=== PATIENT | female | born 1970 | race Caucasian/White ===

== ENCOUNTER → 2019-08-06 | Outpatient (CLI) | payer BC | END | disposition home or self-care (01) | LOC: LAB SHORT 12:02 → LAB EV 12:02 | DX: R05 Cough (principal) | CPT/HCPCS: U0002 ==

== ENCOUNTER 2021-11-10 09:19 | Emergency (ER) | payer BC ==
[~2021-11-10] VITALS: Ht 165.1 cm; Wt 82.5 kg
[~2021-11-10 09:19] MED LIST: AMBIEN5 MG PO; DILT180 PO; DILT60 PO; FLONASE ALLERG9.9 M2; LAMICTAL25 MG PO; LAMO100; [UNRECOGNIZED DRUG - OTHER]
[2021-11-10] MEDS ORDERED: Mupirocin22 GM TOP (09:53)
== END 2021-11-10 09:56 | disposition home or self-care (01) ==
LOC: ER 09:19
DX: R53.83 Other fatigue (principal); R41.0 Disorientation, unspecified; T36.8X5A Adverse effect of other systemic antibiotics, initial encounter; L73.9 Follicular disorder, unspecified; Z88.6 Allergy status to analgesic agent; Z88.1 Allergy status to other antibiotic agents; Z88.0 Allergy status to penicillin; Z88.8 Allergy status to other drugs, medicaments and biological substances; Z79.899 Other long term (current) drug therapy; Y92.9 Unspecified place or not applicable
CPT/HCPCS: 99282

== ENCOUNTER 2021-11-13 17:16 | Emergency (ER) | payer BC ==
[~2021-11-13] VITALS: Ht 165.1 cm; Wt 82.5 kg
[~2021-11-13 17:16] MED LIST changes: +Mupirocin22 GM TOP
[2021-11-13 17:50] LABS: BASOPHILS ABSOLUTE AUTO 0.06 K/mm3 (0.00-0.23); BASOPHILS PERCENT AUTO 1 % (0-2); EOSINOPHILS PERCENT AUTO 3 % (0-6); Hematocrit 39.7 % (33.0-51.0); Hemoglobin 13.2 g/dL (11.5-16.0); IMMATURE GRAN ABSOLUTE AUTO 0.01 K/mm3 (0.00-0.10); IMMATURE GRAN PERCENT AUTO 0 % (0-1); LYMPHOCYTES ABSOLUTE AUTO 1.83 K/mm3 (0.84-5.20); LYMPHOCYTES PERCENT AUTO 26 % (21-46); MONOCYTES ABSOLUTE AUTO 0.63 K/mm3 (0.16-1.47); MONOCYTES PERCENT AUTO 9 % (4-13); Mean Corpuscular HGB 29.9 pg (26.0-34.0); Mean Corpuscular HGB Conc 33.2 g/dL (31.5-36.5); Mean Corpuscular Volume 90 fL (80-100); Mean Platelet Volume 10.2 fL (9.1-12.4); NEUTROPHILS ABSOLUTE AUTO 4.34 K/mm3 (1.96-9.15); NEUTROPHILS PERCENT AUTO 62 % (41-73); Platelet Count 245 K/mm3 (150-400); RDW Coefficient Variation 12.9 % (11.7-14.2); RDW Standard Deviation 42.6 fL (35.1-46.3); Red Blood Cell Count 4.42 M/mm3 (3.80-5.20); White Blood Cell Count 7.07 K/mm3 (4.00-11.30)
[2021-11-13 18:17] LABS: Albumin, Blood 4.2 g/dL (3.4-5.0); Albumin/Globulin Ratio 1.3 (0.8-1.8); Bilirubin, Total 0.3 mg/dL (0.1-1.0); Bun/Creatinine Ratio 25.4 (12.0-20.0); Calcium, Blood 9.6 mg/dL (8.5-10.1); Creatinine, Blood 0.87 mg/dL (0.40-1.00); Globulin, Blood 3.2 g/dL (2.2-4.0); Potassium, Blood 3.7 mmol/L (3.5-5.5); Thyroid Stimulating Hormone 1.6 uIU/mL (0.360-4.800); Total Protein, Blood 7.4 g/dL (6.4-8.2)
== END 2021-11-13 20:48 | disposition home or self-care (01) ==
LOC: ER 17:16
PROVIDERS: Student in an Organized Health Care Education/Training Program
DX: M62.89 Other specified disorders of muscle (principal); R42 Dizziness and giddiness; Z79.899 Other long term (current) drug therapy; Z88.0 Allergy status to penicillin; Z88.2 Allergy status to sulfonamides; Z88.1 Allergy status to other antibiotic agents; Z88.8 Allergy status to other drugs, medicaments and biological substances
CPT/HCPCS: 80053; 84443; 85025

== ENCOUNTER 2022-07-27 11:13 | Emergency (ER) | payer BC ==
[~2022-07-27] VITALS: Ht 165.1 cm; Wt 78.0 kg
[~2022-07-27 11:13] MED LIST changes: +DIAZ5 PO; +HYDCHL25 PO; +LAMO100 PO
[2022-07-27 11:54] LABS: BASOPHILS ABSOLUTE AUTO 0.03 K/mm3 (0.00-0.23); BASOPHILS PERCENT AUTO 1 % (0-2); EOSINOPHILS ABSOLUTE AUTO 0.18 K/mm3 (0.00-0.68); EOSINOPHILS PERCENT AUTO 3 % (0-6); Hematocrit 37.5 % (33.0-51.0); Hemoglobin 12.6 g/dL (11.5-16.0); IMMATURE GRAN ABSOLUTE AUTO 0.02 K/mm3 (0.00-0.10); IMMATURE GRAN PERCENT AUTO 0 % (0-1); LYMPHOCYTES ABSOLUTE AUTO 1.39 K/mm3 (0.84-5.20); LYMPHOCYTES PERCENT AUTO 24 % (21-46); MONOCYTES ABSOLUTE AUTO 0.55 K/mm3 (0.16-1.47); MONOCYTES PERCENT AUTO 9 % (4-13); Mean Corpuscular HGB 29.2 pg (26.0-34.0); Mean Corpuscular HGB Conc 33.6 g/dL (31.5-36.5); Mean Corpuscular Volume 87 fL (80-100); Mean Platelet Volume 9.8 fL (9.1-12.4); NEUTROPHILS ABSOLUTE AUTO 3.73 K/mm3 (1.96-9.15); NEUTROPHILS PERCENT AUTO 63 % (41-73); Platelet Count 260 K/mm3 (150-400); RDW Coefficient Variation 12.8 % (11.7-14.2); RDW Standard Deviation 40.8 fL (35.1-46.3); Red Blood Cell Count 4.32 M/mm3 (3.80-5.20)
[2022-07-27 12:17] LABS: Albumin, Blood 4.1 g/dL (3.4-5.0); Albumin/Globulin Ratio 1.3 (0.8-1.8); Bilirubin, Total 0.4 mg/dL (0.1-1.0); Calcium, Blood 9.5 mg/dL (8.5-10.1); Creatinine, Blood 0.95 mg/dL (0.40-1.00); Globulin, Blood 3.2 g/dL (2.2-4.0); Potassium, Blood 3.3 mmol/L (3.5-5.5); Total Protein, Blood 7.3 g/dL (6.4-8.2)
== END 2022-07-27 16:55 | disposition home or self-care (01) ==
LOC: ER 11:13
PROVIDERS: Student in an Organized Health Care Education/Training Program
DX: R07.89 Other chest pain (principal)
CPT/HCPCS: 36415; 71046; 80053; 83690; 84484; 85025; 93005; 93010; 99285-25; A9270

== ENCOUNTER 2024-08-29 11:07 | Day surgery (SDC) | payer BC ==
[~2024-08-29] VITALS: Ht 165.1 cm; Wt 64.8 kg
[~2024-08-29 11:07] MED LIST changes: +Lactated Ringer's 1,000 ML IV ONE; +propofoL 50 ML IV ONE
[2024-08-29] MEDS ORDERED: Ventolin5 MG/1 ML (11:46)
[2024-08-29] MEDS ORDERED: OMEP20ER (11:47)
[2024-08-29] MEDS ORDERED: Lactated Ringer's 1,000 ML IV ONE (12:17)
[2024-08-29] MEDS ORDERED: propofoL 50 ML IV ONE (13:09)
[2024-08-29 14:56] VITALS: BP 115/75
== END 2024-08-29 14:32 | disposition home or self-care (01) ==
LOC: ORSCSDS 11:07
PROVIDERS: Internal Medicine Gastroenterology
PROC: 0DB98ZX Excision of Duodenum, Via Natural or Artificial Opening Endoscopic, Diagnostic (ICD-10-PCS; principal; 2024-08-29 12:30)
PROC: 0DBK8ZX Excision of Ascending Colon, Via Natural or Artificial Opening Endoscopic, Diagnostic (ICD-10-PCS; principal; 2024-08-29 12:30)
PROC: 0DB58ZX Excision of Esophagus, Via Natural or Artificial Opening Endoscopic, Diagnostic (ICD-10-PCS; principal; 2024-08-29 12:30)
DX: R13.10 Dysphagia, unspecified (principal); R19.4 Change in bowel habit; D12.2 Benign neoplasm of ascending colon; Z86.0101 Personal history of adenomatous and serrated colon polyps; R10.84 Generalized abdominal pain; K21.9 Gastro-esophageal reflux disease without esophagitis; Z79.899 Other long term (current) drug therapy; G47.33 Obstructive sleep apnea (adult) (pediatric)
CPT/HCPCS: 88305; J2704; J7120

== ENCOUNTER 2024-12-23 19:03 | Emergency (ER) | payer BC ==
[~2024-12-23] VITALS: Ht 165.1 cm; Wt 65.8 kg
[~2024-12-23 19:03] MED LIST changes: -Lactated Ringer's 1,000 ML IV ONE; +OMEP20ER; +Ventolin5 MG/1 ML; -propofoL 50 ML IV ONE
[2024-12-23 19:21] VITALS: BP 137/90
[2024-12-23] MEDS ORDERED: NS 1,000 ML IV SCH (20:20)
== END 2024-12-23 21:41 | disposition home or self-care (01) ==
LOC: ER 19:03
DX: T63.461A Toxic effect of venom of wasps, accidental (unintentional), initial encounter (principal); R29.818 Other symptoms and signs involving the nervous system; Z88.6 Allergy status to analgesic agent; Z88.1 Allergy status to other antibiotic agents; Z88.2 Allergy status to sulfonamides; Z88.8 Allergy status to other drugs, medicaments and biological substances; Z91.048 Other nonmedicinal substance allergy status; Z79.899 Other long term (current) drug therapy
CPT/HCPCS: 99283; J7030

== ENCOUNTER 2025-02-15 19:01 | Emergency (ER) | payer BC ==
[~2025-02-15] VITALS: Ht 165.1 cm; Wt 65.8 kg
[2025-02-15 20:26] LABS: BASOPHILS ABSOLUTE AUTO 0.07 K/mm3 (0.00-0.23); BASOPHILS PERCENT AUTO 1 % (0-2); EOSINOPHILS ABSOLUTE AUTO 0.14 K/mm3 (0.00-0.68); EOSINOPHILS PERCENT AUTO 2 % (0-6); Hematocrit 37.7 % (33.0-51.0); Hemoglobin 12.4 g/dL (11.5-16.0); IMMATURE GRAN ABSOLUTE AUTO 0.02 K/mm3 (0.00-0.10); IMMATURE GRAN PERCENT AUTO 0 % (0-1); LYMPHOCYTES ABSOLUTE AUTO 1.63 K/mm3 (0.84-5.20); LYMPHOCYTES PERCENT AUTO 26 % (21-46); MONOCYTES ABSOLUTE AUTO 0.51 K/mm3 (0.16-1.47); MONOCYTES PERCENT AUTO 8 % (4-13); Mean Corpuscular HGB Conc 32.9 g/dL (31.5-36.5); Mean Corpuscular Volume 91 fL (80-100); NEUTROPHILS ABSOLUTE AUTO 4.02 K/mm3 (1.96-9.15); NEUTROPHILS PERCENT AUTO 63 % (41-73); NRBC ABSOLUTE 0.00 K/mm3 (0.00-0.02); NRBC Auto 0.0 /100 WBC (0.0-0.2); Platelet Count 224 K/mm3 (150-400); RDW Coefficient Variation 12.7 % (11.7-14.2); RDW Standard Deviation 41.5 fL (35.1-46.3)
[2025-02-15 20:51] LABS: Alanine Aminotransfer (ALT/SGP 29.0 U/L (12-78); Albumin, Blood 4.4 g/dL (3.4-5.0); Albumin/Globulin Ratio 1.4 (0.8-1.8); Anion Gap 4.0 mmol/L (3-11); Aspartate Aminotrans (AST/SGOT 29.0 U/L (12-37); Bilirubin, Total 0.4 mg/dL (0.1-1.0); Blood Urea Nitrogen 12.0 mg/dL (8-24); CO2, Blood 30.0 mmol/L (21-32); Calcium, Blood 9.2 mg/dL (8.5-10.1); Chloride, Blood 102.0 mmol/L (98-108); Creatinine, Blood 0.9 mg/dL (0.40-1.00); Globulin, Blood 3.2 g/dL (2.2-4.0); Glucose, Blood 119.0 mg/dL (70-99); Potassium, Blood 3.0 mmol/L (3.5-5.5); Sodium, Blood 133.0 mmol/L (136-145); Total Protein, Blood 7.6 g/dL (6.4-8.2)
[2025-02-15 22:15] VITALS: BP 129/76
== END 2025-02-15 22:24 | disposition home or self-care (01) ==
LOC: ER 19:01
PROVIDERS: Student in an Organized Health Care Education/Training Program
DX: R06.02 Shortness of breath (principal); J45.909 Unspecified asthma, uncomplicated
CPT/HCPCS: 71046; 80053; 83880; 84484; 85025; 93005; 93010; 99285-25

== ENCOUNTER 2025-03-17 10:41 | Emergency (ER) | payer BC ==
[~2025-03-17] VITALS: Ht 165.1 cm; Wt 68.0 kg
[2025-03-17 11:22] LABS: BASOPHILS ABSOLUTE AUTO 0.06 K/mm3 (0.00-0.23); BASOPHILS PERCENT AUTO 1 % (0-2); EOSINOPHILS ABSOLUTE AUTO 0.16 K/mm3 (0.00-0.68); EOSINOPHILS PERCENT AUTO 2 % (0-6); Hematocrit 37.8 % (33.0-51.0); Hemoglobin 12.4 g/dL (11.5-16.0); IMMATURE GRAN ABSOLUTE AUTO 0.02 K/mm3 (0.00-0.10); IMMATURE GRAN PERCENT AUTO 0 % (0-1); LYMPHOCYTES ABSOLUTE AUTO 1.25 K/mm3 (0.84-5.20); LYMPHOCYTES PERCENT AUTO 19 % (21-46); MONOCYTES ABSOLUTE AUTO 0.63 K/mm3 (0.16-1.47); MONOCYTES PERCENT AUTO 10 % (4-13); Mean Corpuscular HGB Conc 32.8 g/dL (31.5-36.5); Mean Corpuscular Volume 90 fL (80-100); NEUTROPHILS ABSOLUTE AUTO 4.48 K/mm3 (1.96-9.15); NEUTROPHILS PERCENT AUTO 68 % (41-73); NRBC ABSOLUTE 0.00 K/mm3 (0.00-0.02); NRBC Auto 0.0 /100 WBC (0.0-0.2); Platelet Count 246 K/mm3 (150-400); RDW Coefficient Variation 12.8 % (11.7-14.2); RDW Standard Deviation 42.7 fL (35.1-46.3)
[2025-03-17 11:34] LABS: Alanine Aminotransfer (ALT/SGP 24.0 U/L (12-78); Albumin, Blood 4.0 g/dL (3.4-5.0); Albumin/Globulin Ratio 1.3 (0.8-1.8); Anion Gap 9.0 mmol/L (3-11); Aspartate Aminotrans (AST/SGOT 24.0 U/L (12-37); Bilirubin, Total 0.2 mg/dL (0.1-1.0); Blood Urea Nitrogen 8.0 mg/dL (8-24); CO2, Blood 27.0 mmol/L (21-32); Calcium, Blood 9.1 mg/dL (8.5-10.1); Chloride, Blood 104.0 mmol/L (98-108); Creatinine, Blood 0.98 mg/dL (0.40-1.00); Globulin, Blood 3.0 g/dL (2.2-4.0); Glucose, Blood 91.0 mg/dL (70-99); Potassium, Blood 3.3 mmol/L (3.5-5.5); Sodium, Blood 137.0 mmol/L (136-145); Total Protein, Blood 7.0 g/dL (6.4-8.2)
[2025-03-17 13:29] VITALS: BP 133/71
== END 2025-03-17 13:34 | disposition home or self-care (01) ==
LOC: ER 10:41
PROVIDERS: Emergency Medicine
DX: I49.3 Ventricular premature depolarization (principal); E87.6 Hypokalemia; Z88.0 Allergy status to penicillin; Z88.2 Allergy status to sulfonamides; Z88.8 Allergy status to other drugs, medicaments and biological substances; Z79.899 Other long term (current) drug therapy
CPT/HCPCS: 71046; 80053; 83735; 83880; 84484; 85025; 93005; 93010; 99284-25; A9270

== ENCOUNTER 2025-03-24 12:57 | Emergency (ER) | payer BC ==
[~2025-03-24] VITALS: Ht 165.1 cm; Wt 65.8 kg
[2025-03-24 13:40] LABS: BASOPHILS ABSOLUTE AUTO 0.06 K/mm3 (0.00-0.23); BASOPHILS PERCENT AUTO 1 % (0-2); EOSINOPHILS ABSOLUTE AUTO 0.08 K/mm3 (0.00-0.68); EOSINOPHILS PERCENT AUTO 1 % (0-6); Hematocrit 36.2 % (33.0-51.0); Hemoglobin 12.2 g/dL (11.5-16.0); IMMATURE GRAN ABSOLUTE AUTO 0.01 K/mm3 (0.00-0.10); IMMATURE GRAN PERCENT AUTO 0 % (0-1); LYMPHOCYTES ABSOLUTE AUTO 1.65 K/mm3 (0.84-5.20); LYMPHOCYTES PERCENT AUTO 27 % (21-46); MONOCYTES ABSOLUTE AUTO 0.39 K/mm3 (0.16-1.47); MONOCYTES PERCENT AUTO 6 % (4-13); Mean Corpuscular HGB Conc 33.7 g/dL (31.5-36.5); Mean Corpuscular Volume 89 fL (80-100); NEUTROPHILS ABSOLUTE AUTO 3.91 K/mm3 (1.96-9.15); NEUTROPHILS PERCENT AUTO 64 % (41-73); NRBC ABSOLUTE 0.00 K/mm3 (0.00-0.02); NRBC Auto 0.0 /100 WBC (0.0-0.2); Platelet Count 263 K/mm3 (150-400); RDW Coefficient Variation 12.6 % (11.7-14.2); RDW Standard Deviation 41.1 fL (35.1-46.3)
[2025-03-24] MEDS ORDERED: DIPH50 PO (13:47)
[2025-03-24 14:03] LABS: Alanine Aminotransfer (ALT/SGP 25.0 U/L (12-78); Albumin, Blood 3.9 g/dL (3.4-5.0); Albumin/Globulin Ratio 1.3 (0.8-1.8); Anion Gap 8.0 mmol/L (3-11); Aspartate Aminotrans (AST/SGOT 24.0 U/L (12-37); Bilirubin, Total 0.4 mg/dL (0.1-1.0); Blood Urea Nitrogen 9.0 mg/dL (8-24); CO2, Blood 26.0 mmol/L (21-32); Calcium, Blood 9.5 mg/dL (8.5-10.1); Chloride, Blood 100.0 mmol/L (98-108); Creatinine, Blood 1.05 mg/dL (0.40-1.00); Globulin, Blood 3.0 g/dL (2.2-4.0); Glucose, Blood 129.0 mg/dL (70-99); Potassium, Blood 3.4 mmol/L (3.5-5.5); Sodium, Blood 131.0 mmol/L (136-145); Total Protein, Blood 6.9 g/dL (6.4-8.2)
[2025-03-24 15:39] VITALS: BP 124/84
== END 2025-03-24 15:42 | disposition home or self-care (01) ==
LOC: ER 12:57
PROVIDERS: Student in an Organized Health Care Education/Training Program
DX: T78.40XA Allergy, unspecified, initial encounter (principal)
CPT/HCPCS: 71046; 80053; 85025; 93005; 93010; 99284-25

== ENCOUNTER → 2025-04-07 | Outpatient (CLI) | payer BC ==
[~2025-04-07] MED LIST changes: +DIPH50 PO
[2025-04-10 01:29] LABS: CREATININE,URINE - PER 24H 1131 mg/d (500-1400); CREATININE,URINE - PER VOLUME 39 mg/dL; HOURS COLLECTED 24 hr; METANEPHRINE,UR - RATIO TO CRT 115 ug/g CRT (0-300); METANEPHRINE,URINE - PER 24H 130 ug/d (36-229); METANEPHRINE,URN - PER VOLUME 45 ug/L; NORMETANEPHRINE,U - PER VOLUME 164 ug/L; NORMETANEPHRINE,URN - PER 24H 476 ug/d (95-650); NORMETANEPHRINE,URN/CRT RATIO 421 ug/g CRT (0-400)
[2025-04-11 01:52] LABS: 5-HIAA URINE - PER 24H 4 mg/d (0-15); 5-HIAA URINE - PER VOLUME 1.4 mg/L; 5-HIAA URINE - RATIO TO CRT 4 mg/gCR (0-14); CREATININE, URINE - PER 24H 1131 mg/d (500-1400); CREATININE, URINE - PER VOLUME 39 mg/dL; HOURS COLLECTED 24 hr
[2025-04-11 14:24] LABS: CREATININE,URINE - PER 24H 1131 mg/d (500-1400); CREATININE,URINE - PER VOLUME 39 mg/dL; DOPAMINE,URINE - PER 24H 52 ug/d (71-485); DOPAMINE,URINE - PER VOLUME 18 ug/L; DOPAMINE,URINE - RATIO TO CRT 46 ug/g CRT (0-250); EPINEPHRINE,URINE - PER 24H <3 ug/d (1-14); EPINEPHRINE,URINE - PER VOLUME <1 ug/L; EPINEPHRINE,URN - RATIO TO CRT <3 ug/g CRT (0-20); HOURS COLLECTED 24 hr; NOREPINEPHRINE,UR - PER VOLUME 6 ug/L; NOREPINEPHRINE,URINE - PER 24H 17 ug/d (14-120); NOREPINEPHRINE,URN/CRT RATIO 15 ug/g CRT (0-45)
[2025-04-17 08:27] LABS: COLLECTION DURATION 24 hr; URINE VOLUME 2900 mL
== END ==
LOC: LAB SHORT 08:00 → LAB 08:00
PROVIDERS: Student in an Organized Health Care Education/Training Program
DX: D89.40 Mast cell activation, unspecified (principal); J30.0 Vasomotor rhinitis; J32.8 Other chronic sinusitis
CPT/HCPCS: 81050; 82384; 82542; 83497; 83835; 84150